=== PATIENT | female | born 1975 | race Caucasian/White ===

== ENCOUNTER 2016-11-17 09:02 | Emergency (ER) | payer OTHER ==
[~2016-11-17] VITALS: Ht 167.6 cm; Wt 62.1 kg
[2016-11-17 09:33] VITALS: BP 104/71
== END 2016-11-17 10:55 | disposition home or self-care (01) ==
LOC: ER 09:02 → EDBD 09:02 → ER 10:55
DX: J40 Bronchitis, not specified as acute or chronic (principal); J44.9 Chronic obstructive pulmonary disease, unspecified
CPT/HCPCS: 71020

== ENCOUNTER 2019-02-26 07:43 | Emergency (ER) | payer OTHER ==
[~2019-02-26] VITALS: Ht 162.6 cm; Wt 42.6 kg
[2019-02-26 07:50] VITALS: BP 101/63
== END 2019-02-26 09:42 | disposition home or self-care (01) ==
LOC: ER 07:43 → MERGE 07:43 → ER 09:40
DX: J40 Bronchitis, not specified as acute or chronic (principal); Z88.8 Allergy status to other drugs, medicaments and biological substances; Z91.041 Radiographic dye allergy status
CPT/HCPCS: 71046